=== PATIENT | male | born 1975 | race Hispanic/Latino ===

== ENCOUNTER 2023-12-02 11:07 | Emergency (ER) | payer OTHER ==
[2023-12-02] MEDS ORDERED: Iopamidol-370 76% 500 ML MDV (1 ML CHARGE) ONE (11:16)
[2023-12-02] MEDS ORDERED: Ketorolac Tromethamine 30 MG (1 mL) VIAL ONE (11:38)
[2023-12-02 11:57] LABS: #Basophils Less than 0.03 10x3/uL (0.0-0.2); #Eosinphils Less than 0.03 10x3/uL (0.0-0.7); %Basophils 0.1 % (0.0-1.0); %Eosinophils 0.1 % (0.0-10.0); %Lymphocytes 10.1 % (21.0-51.0); %Monocytes 4.5 % (0.0-10.0); %Neutrophils 84.9 % (42.0-75.0); Hematocrit 44.9 % (42.0-52.0); Hemoglobin 15.4 g/dL (14.0-18.0); Mean Corpuscular HGB CONC 34.3 g/dL (32.0-36.0); Mean Corpuscular Hemoglobin 30.3 pg (27.0-31.0); Mean Corpuscular Volume 88.4 fL (78.0-98.0); Mean Platelet Volume 10.9 fL (7.4-10.4); Platelet Count 252 10x3/uL (130-400); RBC Distribution Width 13.4 % (11.5-14.5); Red Blood Cell (RBC) Count 5.08 mill/uL (4.70-6.10)
[2023-12-02 12:15] LABS: ALT (SGPT) 44 U/L (8-55); AST (SGOT) 27 U/L (5-34); Albumin 4.2 g/dL (3.5-5.0); Alkaline Phosphatase 71 U/L (40-110); Anion Gap 17 mmol/L (10-20); BUN (Urea Nitrogen) 12 mg/dL (8.9-20.6); Bilirubin, Total 0.6 mg/dL (0.2-1.2); Calc. Creatinine Clearance 0 mL/min (70-130); Calcium 9.4 mg/dL (7.8-10.44); Carbon Dioxide 25 mmol/L (22-29); Chloride 105 mmol/L (98-107); Estimated GFR 111; Globulin 3.2 g/dL (2.4-3.5); Glucose 112 mg/dL (70-105); Lipase 16 U/L (8-78); Potassium 4.2 mmol/L (3.5-5.1); Protein, Total 7.4 g/dL (6.0-8.3); Sodium 143 mmol/L (136-145)
[2023-12-02] MEDS ORDERED: Morphine 4 MG/ML VIAL ONE (13:10)
== END 2023-12-02 15:10 | disposition home or self-care (01) ==
LOC: ERS 11:07
DX: K57.32 Diverticulitis of large intestine without perforation or abscess without bleeding (principal); E78.5 Hyperlipidemia, unspecified; E11.9 Type 2 diabetes mellitus without complications; Z55.6 Problems related to health literacy; Z79.899 Other long term (current) drug therapy
CPT/HCPCS: 74177; 80053; 83690; 85025; J1885; J2270; 96374; 96375; Q9967